=== PATIENT | female | born 1965 | race Caucasian/White ===

== ENCOUNTER → 2017-11-05 08:13 | Outpatient (CLI) | payer OTHER, SELFPAY ==
[2017-11-05 09:04] LABS: Alanine Aminotransferase 19 U/L (12-78); Albumin Level 3.7 gm/dL (3.4-5.0); Albumin/Globulin Ratio 0.9 (1.1-1.8); Alkaline Phosphatase 53 U/L (46-116); Anion Gap 12.9 mEq/L (5-15); Aspartate Amino Transferase 15 U/L (15-37); Bilirubin,Total 0.5 mg/dL (0.2-1.0); Blood Urea Nitrogen 14 mg/dL (7-18); Carbon Dioxide 27 mmol/L (21.0-32.0); Chloride 100 mmol/L (98-107); Chol/HDL Ratio 4.2 (1-3.5); Cholesterol 233 mg/dL (140-200); Creatinine,Serum 0.48 mg/dL (0.55-1.02); Estimated Glomerular Filt Rate 137 ml/min (>60); GFR (African American) 166 ML/MIN (>60); Globulin 4.3 gm/dl (1.3-3.2); Glucose 123 mg/dL (74-106); HDL Cholesterol 56 mg/dL (29-89); LDL Cholesterol 105 mg/dL (0-130); Potassium 3.9 mmoL/L (3.5-5.1); Sodium 136 mmol/L (136-145); Thyroid Stimulating Hormone 1.45 uIU/ml (0.358-3.740); Triglycerides 358 mg/dL (30-200); VLDL Cholesterol 72 mg/dL (0-40)
[2017-11-05 09:57] LABS: Hemoglobin A1C 5.5 % (0.0-7.0)
== END ==
PROVIDERS: Visit Provider Internal Medicine Adolescent Medicine
DX: E78.5 Hyperlipidemia, unspecified (principal); E11.9 Type 2 diabetes mellitus without complications; E03.9 Hypothyroidism, unspecified
CPT/HCPCS: 36415; 80053; 80061; 83036; 84443

== ENCOUNTER → 2018-02-28 09:39 | Outpatient (REF) | payer OTHER, SELFPAY | LOC: LAB 09:39 | PROVIDERS: Visit Provider Internal Medicine Adolescent Medicine | DX: R39.15 Urgency of urination (principal) | CPT/HCPCS: 87086 ==

== ENCOUNTER → 2018-04-13 07:11 | Outpatient (CLI) | payer OTHER, SELFPAY ==
[2018-04-13 07:57] LABS: Hemoglobin A1C 6.3 % (0.0-7.0)
[2018-04-13 08:23] LABS: Alanine Aminotransferase 16 U/L (12-78); Albumin Level 3.6 gm/dL (3.4-5.0); Albumin/Globulin Ratio 1.1 (1.1-1.8); Alkaline Phosphatase 48 U/L (46-116); Anion Gap 10.1 mEq/L (5-15); Aspartate Amino Transferase 11 U/L (15-37); Bilirubin,Total 0.3 mg/dL (0.2-1.0); Blood Urea Nitrogen 12 mg/dL (7-18); Calcium 8.7 mg/dL (8.5-10.1); Carbon Dioxide 30 mmol/L (21.0-32.0); Chloride 107 mmol/L (98-107); Chol/HDL Ratio 3.2 (1-3.5); Cholesterol 165 mg/dL (140-200); Creatinine,Serum 0.67 mg/dL (0.55-1.02); Estimated Glomerular Filt Rate 93 ml/min (>60); GFR (African American) 113 ML/MIN (>60); Globulin 3.3 gm/dl (1.3-3.2); Glucose 130 mg/dL (74-106); HDL Cholesterol 51 mg/dL (29-89); LDL Cholesterol 88 mg/dL (0-130); Potassium 4.1 mmoL/L (3.5-5.1); Sodium 143 mmol/L (136-145); Thyroid Stimulating Hormone 1.46 uIU/ml (0.358-3.740); Total Protein,Serum 6.9 gm/dL (6.4-8.2); Triglycerides 129 mg/dL (30-200); VLDL Cholesterol 26 mg/dL (0-40)
== END ==
PROVIDERS: PCP Internal Medicine Adolescent Medicine; Visit Provider Internal Medicine Adolescent Medicine
DX: E11.9 Type 2 diabetes mellitus without complications (principal); E78.5 Hyperlipidemia, unspecified; E03.9 Hypothyroidism, unspecified
CPT/HCPCS: 36415; 80053; 80061; 83036; 84443

== ENCOUNTER → 2018-08-19 09:28 | Outpatient (CLI) | payer OTHER, SELFPAY ==
[2018-08-19 10:05] LABS: Alanine Aminotransferase 17 U/L (12-78); Albumin Level 3.8 gm/dL (3.4-5.0); Albumin/Globulin Ratio 0.9 (1.1-1.8); Alkaline Phosphatase 56 U/L (46-116); Aspartate Amino Transferase 13 U/L (15-37); Bilirubin,Total 0.4 mg/dL (0.2-1.0); Blood Urea Nitrogen 12 mg/dL (7-18); Calcium 9.1 mg/dL (8.5-10.1); Carbon Dioxide 29 mmol/L (21.0-32.0); Chloride 101 mmol/L (98-107); Chol/HDL Ratio 3.1 (1-3.5); Cholesterol 181 mg/dL (140-200); Creatinine,Serum 0.62 mg/dL (0.55-1.02); Estimated Glomerular Filt Rate 102 ml/min (>60); GFR (African American) 123 ML/MIN (>60); Globulin 4.3 gm/dl (1.3-3.2); Glucose 125 mg/dL (74-106); HDL Cholesterol 58 mg/dL (29-89); LDL Cholesterol 104 mg/dL (0-130); Sodium 139 mmol/L (136-145); Thyroid Stimulating Hormone 1.95 uIU/ml (0.358-3.740); Total Protein,Serum 8.1 gm/dL (6.4-8.2); Triglycerides 93 mg/dL (30-200); VLDL Cholesterol 19 mg/dL (0-40)
[2018-08-19 15:24] LABS: Hemoglobin A1C 6.3 % (0.0-7.0)
== END ==
PROVIDERS: Visit Provider Internal Medicine Adolescent Medicine
DX: E11.9 Type 2 diabetes mellitus without complications (principal); E78.5 Hyperlipidemia, unspecified; E03.9 Hypothyroidism, unspecified
CPT/HCPCS: 36415; 80053; 80061; 83036; 84443

== ENCOUNTER → 2018-08-26 07:37 | Outpatient (CLI) | payer OTHER, SELFPAY ==
--- NOTE | 2018-08-26 07:52 | MR_ITS ---
MR lumbar spine wo con, MR 3-d myelogram/MRCP Ordering Physician: Ben Harris MD Patient Age: 52 years: Female HISTORY: ITS low back pain with left buttock and leg pain. Buttock and leg numbness, tingling. Left groin pain as well. : LEFT SIDE SCIATICA TECHNIQUE: Sagittal STIR, T1, T2, axial T1 and T2. On 1.5T Siemens wide bore MRI. 3-D MR myelogram image set obtained & performed on MRI workstation. Additional sagittal thin section T2 weighted dataset obtained from this latter acquisition as well (---76 CPT) COMPARISON :Plain films of the lumbar spine 12-21-03 04 FINDINGS The vertebral bodies are intact and the lumbar spine. No compression fractures. No osseous lesions. There is similar stable appearance when compared back to lumbar plain films from 2015. Mild anterior marginal osteophyte formation L-spine which become most evident at thoracolumbar junction region . Uppermost sacrum included & appears satisfactory. L5/S1. Disc well hydrated intact with only scant disc bulge. Moderate facet hypertrophy, arthropathy most evident at this level L4/5. Disc well hydrated intact with only scant disc bulge most evident central. [id number] facet and ligament flavum hypertrophy. L3/4 only scant slight loss of disc hydration & scant disc narrowing. Mild foraminal disc bulge. L2/3. Disc intact with only Slight loss of disc hydration is scant disc space narrowing.. No disc bulge or protrusion.. L1/2. Again only scant Subtle loss of disc height & hydration no disc protrusion. T12/L1 Again only scant Subtle loss of disc height & hydration no disc protrusion Neural foramen widely patent through these levels at mid and upper L-spine. . T11/ 12.: More pronounced degenerative disc space narrowing seen at T11/12,. Diffuse posterior ridging and spondylosis with a small central disc bulge/protrusion. These features do abut and efface the the thecal sac lower midline and just to the right of midline at lower thoracic cord. Axial image 9 sagittal 8 and 9. T10-11 there is a asymmetric bulge/small disc protrusion to the right would suggest abuts and flattens anterior right aspect of thoracic cord lower. Axial slice 3 3-D MR myelogram. The indentation upon the anterior thecal sac at T11/T12 most evident . Otherwise the lumbar spine with no significant epidural impression. There is only slight accentuated tapering thecal sac at L5/S1 level in part due to the facet hypertrophy No significant renal pathology. No evident retroperitoneal adenopathy. No aneurysm. --------IMPRESSION: 1. Most notable features are seen at lower thoracic spine(rather than lumbar spine) : ... T 11/T12: posterior ridging with mixed disc protrusion at midline-which does abut & slightly efface thoracic cord midline & just to the right of midline. ... T10/11:. Minimal disc protrusion to the right which slightly effaces thoracic cord right paracentral... 2. Only minimal degenerative changes lumbar spine No significant disc protrusion nor/herniation lumbar spine. No spinal stenosis lumbar spine Only minor disc bulging at the lower 3 levels. & hypertrophic facet changes most evident L5/S1 followed by L4/5..
== END ==
PROVIDERS: PCP Internal Medicine Adolescent Medicine; Visit Provider Internal Medicine Adolescent Medicine
DX: M54.32 Sciatica, left side (principal)
CPT/HCPCS: 72148; 76376

== ENCOUNTER → 2018-09-05 08:44 | Outpatient (POV) | payer OTHER, SELFPAY ==
[2018-09-05 09:04] VITALS: BP 131/87; PULSE 87; RESP 18; O2SAT 99
--- NOTE | 2018-09-05 10:16 | HMH.PMCON ---
Assessment and Plan (1) Muscle strain Current visit: Yes Status: Chronic Category: Medical Code(s): T14.8XXA - Other injury of unspecified body region, initial encounter (2) Myofascial pain Current visit: Yes Status: Chronic Category: Medical Code(s): M79.18 - Myalgia, other site (3) Left leg pain Current visit: Yes Status: Chronic Category: Medical Code(s): M79.605 - Pain in left leg - Assessment and plan all Dx Assessment and Plan for all problems:: We will send the patient for physical therapy we will also add Zanaflex 2 mg at nighttime as needed. Patient is going to continue with her diclofenac. We will follow-up after her physical therapy. Dr. Redmond has reviewed this note and agrees with this plan of care. This note was dictated using voice recognition software and may contain errors or omissions HPI - Data of Consult Consult date: 09/05/18 Requesting Physician: Magi Yeung APRN Primary Care Provider: Ben Harris MD - Consult Narrative Reason for consult: Left leg pain History of present illness: Ms. James is a 52 year old female who presents today for consultation in regards to her left buttock and left leg pain. Patient states work increases her pain while rest and diclofenac decrease her pain. Patient rates her pain a 5 out of 10. She states she does pretty well when she is not working long hours. Patient did have a steroid injection however she stated she had a reaction in regards to her sugar. Patient has not been in physical therapy yet. CC: Magi Yeung APRN [facility] History I have reviewed the patient's past medical history: Yes Medical History: Reports:: Diabetes Mellitus Type 2, Gastroesophageal Reflux Disease(GERD), Hyperlipidemia, Hypertension Denies:: Diabetes Mellitus Type 1, Internal Pacemaker, Lung Disease, Seizures Other Medical History: Reports: Glaucoma Other Surgeries: Yes: Cholecystectomy, Hysterectomy-Total. No: Pacemaker Amputation: No Fractures: No - *Social History Smoking Status: Never smoker Alcohol Intake: never Substance Use Type: denies use Occupational Status: other Housing: house Travel in the last 8 weeks: None - Psychiatric History Expresses thoughts of harming self/others: None Suicide Plan Description: No Plan *Family Hx:: No significant family history Review of Systems - Review of Systems ROS General: no recent weight change, no fever, no sleep disturbances Respiratory: no cough, no shortness of air, no recurring pulmonary infections Cardiovascular/Peripheral Vascular: No chest pain, No palpitations, no edema, no shortness of breath. Gastrointestinal: no incontinence, normal bowel movements reported Genitourinary: no incontinence Musculoskeletal: Left leg pain Psychiatric: normal mood/ affect Neurological: [denies weakness in extremities], [denies balance issues] Meds Home Medications Medication Instructions Recorded Confirmed Type brimonidine-timolol 0.2 %-0.5 % 1 drop OPHTHALMIC BID 30 Days #10 01/19/18 05/13/18 History eye drops fenofibrate 150 mg capsule 150 mg PO DAILY 90 Days #90 01/19/18 05/13/18 History lansoprazole 30 mg capsule,delayed 30 mg PO DAILY 90 Days #90 01/19/18 05/13/18 History release levothyroxine 50 mcg tablet 50 mcg PO DAILY 90 Days #90 01/19/18 05/13/18 History metformin 500 mg tablet 500 mg PO DAILY 90 Days #90 01/19/18 05/13/18 History pitavastatin calcium 4 mg tablet 4 mg PO DAILY 90 Days #90 01/19/18 05/13/18 History ramipril 5 mg capsule 5 mg PO BID 90 Days #180 01/19/18 05/13/18 History Estrogens, Conjugated [Premarin] 1.25 mg PO QDAY 05/13/18 05/13/18 History Allergies Allergy/AdvReac Type Severity Reaction Status Date / Time acetaminophen Allergy Verified 05/13/18 14:33 [From Coricidin] bacitracin Allergy Verified 05/13/18 14:33 [From Neosporin ([id number])] chlorpheniramine Allergy Verified 05/13/18 14:33 [From Coricidin]
--- NOTE | 2018-09-05 10:20 | P.CONS_ITS ---
Assessment and Plan (1) Muscle strain Current visit: Yes Status: Chronic Category: Medical Code(s): T14.8XXA - Other injury of unspecified body region, initial encounter (2) Myofascial pain Current visit: Yes Status: Chronic Category: Medical Code(s): M79.18 - Myalgia, other site (3) Left leg pain Current visit: Yes Status: Chronic Category: Medical Code(s): M79.605 - Pain in left leg - Assessment and plan all Dx Assessment and Plan for all problems:: We will send the patient for physical therapy we will also add Zanaflex 2 mg at nighttime as needed. Patient is going to continue with her diclofenac. We will follow-up after her physical therapy. Dr. Redmond has reviewed this note and agrees with this plan of care. This note was dictated using voice recognition software and may contain errors or omissions HPI - Data of Consult Consult date: 09/05/18 Requesting Physician: Magi Yeung APRN Primary Care Provider: Ben Harris MD - Consult Narrative Reason for consult: Left leg pain History of present illness: Ms. James is a 52 year old female who presents today for consultation in regards to her left buttock and left leg pain. Patient states work increases her pain while rest and diclofenac decrease her pain. Patient rates her pain a 5 out of 10. She states she does pretty well when she is not working long hours. Patient did have a steroid injection however she stated she had a reaction in regards to her sugar. Patient has not been in physical therapy yet. CC: Magi Yeung APRN [facility] History I have reviewed the patient's past medical history: Yes Medical History: Reports:: Diabetes Mellitus Type 2, Gastroesophageal Reflux Disease(GERD), Hyperlipidemia, Hypertension Denies:: Diabetes Mellitus Type 1, Internal Pacemaker, Lung Disease, Seizures Other Medical History: Reports: Glaucoma Other Surgeries: Yes: Cholecystectomy, Hysterectomy-Total. No: Pacemaker Amputation: No Fractures: No - *Social History Smoking Status: Never smoker Alcohol Intake: never Substance Use Type: denies use Occupational Status: other Housing: house Travel in the last 8 weeks: None - Psychiatric History Expresses thoughts of harming self/others: None Suicide Plan Description: No Plan *Family Hx:: No significant family history Review of Systems - Review of Systems ROS General: no recent weight change, no fever, no sleep disturbances Respiratory: no cough, no shortness of air, no recurring pulmonary infections Cardiovascular/Peripheral Vascular: No chest pain, No palpitations, no edema, no shortness of breath. Gastrointestinal: no incontinence, normal bowel movements reported Genitourinary: no incontinence Musculoskeletal: Left leg pain Psychiatric: normal mood/ affect Neurological: [denies weakness in extremities], [denies balance issues] Meds Home Medications Medication Instructions Recorded Confirmed Type brimonidine-timolol 0.2 %-0.5 % 1 drop OPHTHALMIC BID 30 Days #01/19/18 05/13/18 History eye drops fenofibrate 150 mg capsule 150 mg PO DAILY 90 Days #01/19/18 05/13/18 History lansoprazole 30 mg capsule,delayed 30 mg PO DAILY 90 Days #01/19/18 05/13/18 History release levothyroxine 50 mcg tablet 50 mcg PO DAILY 90 Days #01/19/18 05/13/18 History metformin 500 mg tablet 500 mg PO DAILY 90 Days #01/19/18 05/13/18 History pitavastatin
== END ==
PROVIDERS: PCP Internal Medicine Adolescent Medicine; Visit Provider Clinical Nurse Specialist Family Health
DX: T14.8XXA Other injury of unspecified body region, initial encounter (principal); M79.18 Myalgia, other site; M79.605 Pain in left leg
CPT/HCPCS: 99202

== ENCOUNTER 2018-10-24 08:00 | Outpatient (RCR) | payer OTHER, SELFPAY ==
--- NOTE | 2018-09-14 10:24 | HMH.PTOPEV ---
PT Outpatient Evaluation Rehab PT Outpatient Evaluation Start: 09/14/18 08:59 Freq: Status: Active Protocol: Document 09/14/18 09:52 KATIUSKA (Rec: 09/14/18 10:24 PHORBRADY [id number]) Electronically Signed By Nikhil Martinez, PT 09/14/18 09:52 Outpatient Therapy Subjective History Subjective History Pt is a 52 yowf with complaints of pain and numbness in the left hip which shoots down the leg to the feet that began 1 year ago. Pt reports tearing her L HS 2 years ago. Pt reports seeing doctor a couple weeks ago and having an MRI of her lumbar and thoracic spine which shows mild DDD in lower thoracic spine. Pt reports doctor states pain is due to left sciatic nerve. Pt reports pain is 2/10, at best 0/10, and at worst 6/10. Pt describes pain as ache, tightness, and numbness. Pt states pain is increased with activity and decreased with rest and heat. Pt has diabetes and hypertension and denies other comorbidities. Pt reports having lasik surgery, hysterectomy, and gallbladder removal. Chief Complaint Pain Stiff Symptom Type Ache Numbness Shooting Symptoms Relieved By Rest/Positioning Heat Symptoms Aggravated By Sitting Standing Bending/Stooping Physical Activity Twisting Walking Lifting Prior Functional Limitations None Current Functional Limitations Lifting Sleeping Standing Sitting Squatting Walking Stairs Symptom Description Intermittent Level of pain today (0-10) 2 Pain scale - at its best (0-10) 0 Pain scale - at its worst (0-10) 6 Lumbopelvi
== END 2018-10-24 08:05 | disposition home or self-care (01) ==
LOC: PT 08:00
PROVIDERS: Visit Provider Clinical Nurse Specialist Family Health
DX: M54.5 Low back pain (principal); M79.604 Pain in right leg; M79.605 Pain in left leg
CPT/HCPCS: 97010; 97014; 97033; 97110; 97163; G0283

== ENCOUNTER → 2019-01-05 07:47 | Outpatient (CLI) | payer OTHER, SELFPAY ==
[2019-01-05 10:22] LABS: Hemoglobin A1C 6.3 % (0.0-7.0)
[2019-01-05 10:50] LABS: Free Thyroxine Index 3.9 ug/dL (5.93-13.13); T4 (Thyroxine) 12.5 ug/dl (4.7-13.3); Triiodothryronine (T3) Uptake 31 % (31-39)
== END ==
PROVIDERS: Visit Provider Internal Medicine Adolescent Medicine
DX: E78.5 Hyperlipidemia, unspecified (principal); E03.9 Hypothyroidism, unspecified; E11.9 Type 2 diabetes mellitus without complications
CPT/HCPCS: 36415; 83036; 84436; 84443; 84479

== ENCOUNTER → 2019-05-15 07:19 | Outpatient (CLI) | payer OTHER, SELFPAY ==
[2019-05-15 09:25] LABS: Alanine Aminotransferase 10 U/L (12-78); Albumin Level 3.9 gm/dL (3.4-5.0); Albumin/Globulin Ratio 1.1 (1.1-1.8); Alkaline Phosphatase 39 U/L (46-116); Aspartate Amino Transferase 17 U/L (15-37); Bilirubin,Total 0.4 mg/dL (0.2-1.0); Blood Urea Nitrogen 14 mg/dL (7-18); Calcium 9.2 mg/dL (8.5-10.1); Carbon Dioxide 29 mmol/L (21.0-32.0); Chloride 100 mmol/L (98-107); Chol/HDL Ratio 3.8 (1-3.5); Cholesterol 204 mg/dL (140-200); Creatinine,Serum 0.59 mg/dL (0.55-1.02); Estimated Glomerular Filt Rate 107 ml/min (>60); GFR (African American) 130 ML/MIN (>60); Globulin 3.5 gm/dl (1.3-3.2); Glucose 123 mg/dL (74-106); HDL Cholesterol 54 mg/dL (29-89); LDL Cholesterol 111 mg/dL (0-130); Sodium 139 mmol/L (136-145); Thyroid Stimulating Hormone 1.16 uIU/ml (0.358-3.740); Total Protein,Serum 7.4 gm/dL (6.4-8.2); Triglycerides 197 mg/dL (30-200); VLDL Cholesterol 39 mg/dL (0-40)
[2019-05-15 11:10] LABS: Hemoglobin A1C 6.4 % (0.0-7.0)
== END ==
PROVIDERS: Visit Provider Internal Medicine Adolescent Medicine
DX: E78.5 Hyperlipidemia, unspecified (principal); E11.9 Type 2 diabetes mellitus without complications; E03.9 Hypothyroidism, unspecified; Z79.84 Long term (current) use of oral hypoglycemic drugs
CPT/HCPCS: 36415; 80053; 80061; 83036; 84443

== ENCOUNTER → 2019-09-26 13:13 | Outpatient (CLI) | payer OTHER, SELFPAY ==
[2019-09-26 13:27] LABS: Basophils % 0.6 % (0.1-2.0); Eosinophils # 0.3 K/mm3 (0.0-0.4); Hematocrit 36.4 % (37.0-47.0); Hemoglobin 12.7 g/dL (12.2-16.2); Lymphocytes # 0.5 K/mm3 (0.7-4.5); Lymphocytes % 13.2 % (10-50); Mean Corpuscular Volume 77.2 fl (81-99); Mean Platelet Volume 7.6 fl (7.4-10.4); Monocytes # 0.1 K/mm3 (0.1-1.0); Monocytes % 3.2 % (1.7-9.3); Platelet Count 205 K/mm3 (142-424); Red Blood Count 4.71 M/mm3 (4.20-5.40); Red Cell Distribution Width 15.7 % (11.5-17.5)
[2019-09-26 14:16] LABS: Chloride 91 mmol/L (98-107); Potassium 3.4 mmoL/L (3.5-5.1); Sodium 130 mmol/L (136-145)
[2019-09-26 14:19] LABS: Alanine Aminotransferase 14 U/L (12-78); Albumin Level 4.6 g/dl (3.5-5.0); Albumin/Globulin Ratio 1.3 (1.1-1.8); Alkaline Phosphatase 57 U/L (38-126); Anion Gap 15.4 mEq/L (5-15); Aspartate Amino Transferase 47 U/L (14-36); Bilirubin,Total 0.7 mg/dl (0.2-1.3); Blood Urea Nitrogen 10 mg/dl (7-17); Calcium 9.2 mg/dl (8.4-10.2); Carbon Dioxide 27 mmol/L (22.0-30.0); Estimated Glomerular Filt Rate 105 ml/min (>60); GFR (African American) 128 ML/MIN (>60); Globulin 3.5 g/dL (1.3-3.2); Glucose 145 mg/dl (74-100); Total Protein,Serum 8.1 g/dl (6.3-8.2)
[2019-09-26 19:21] LABS: Adenovirus F 40/41, stool Not Detected (NotDetected); Astrovirus Not Detected (NotDetected); Campylobacter Not Detected (NotDetected); Clostridium Difficile A/B, PCR Not Detected (NotDetected); Cryptosporidium Not Detected (NotDetected); Cyclospora Cayetanesis Not Detected (NotDetected); Entamoeba histolytica Not Detected (NotDetected); Enteroaggregative E coli Not Detected (NotDetected); Enteropathogenic E coli Not Detected (NotDetected); Enterotoxigenic E coli Not Detected (NotDetected); Giardia lamblia Not Detected (NotDetected); Norovirus Not Detected (NotDetected); Plesimonas Shigalloides, PCR Not Detected (NotDetected); Rotavirus A Not Detected (NotDetected); Salmonella, PCR Not Detected (NotDetected); Sapovirus Not Detected (NotDetected); Shiga-like toxin E coli Not Detected (NotDetected); Shigella Enterovasive E coli Not Detected (NotDetected); Vibrio Cholerae Not Detected (NotDetected); Vibrio, PCR Not Detected (NotDetected); Yersinia Entercolitica, PCR Not Detected (NotDetected)
== END ==
PROVIDERS: Visit Provider Nurse Practitioner Family
DX: K52.9 Noninfective gastroenteritis and colitis, unspecified (principal); R53.1 Weakness
CPT/HCPCS: 36415; 80053; 85025; 87507

== ENCOUNTER 2019-09-27 08:05 | Outpatient (CLI) | payer OTHER, SELFPAY ==
[2019-09-27 08:27] LABS: Basophils % 0.6 % (0.1-2.0); Eosinophils # 0.3 K/mm3 (0.0-0.4); Eosinophils % 6.5 % (0.1-12.0); Hemoglobin 12.4 g/dL (12.2-16.2); Lymphocytes % 21.5 % (10-50); Mean Corpuscular HGB Conc 33.5 g/dL (31.8-35.4); Mean Corpuscular Hemoglobin 26.1 pg (27.0-31.2); Mean Corpuscular Volume 78.1 fl (81-99); Mean Platelet Volume 8.2 fl (7.4-10.4); Monocytes # 0.2 K/mm3 (0.1-1.0); Monocytes % 3.9 % (1.7-9.3); Neutrophils # 3.3 K/mm3 (1.8-7.8); Neutrophils % 67.4 % (37.0-80.0); Platelet Count 198 K/mm3 (142-424); Red Blood Count 4.74 M/mm3 (4.20-5.40); Red Cell Distribution Width 15.8 % (11.5-17.5); White Blood Count 4.8 K/mm3 (4.8-10.8)
[2019-09-27 09:30] VITALS: BP 94/60; PULSE 87; RESP 18; TEMP 36.7; O2SAT 97
[2019-09-27 10:30] VITALS: BP 108/52; PULSE 80; RESP 18; O2SAT 99
[2019-09-27 11:22] LABS: Chloride 92 mmol/L (98-107); Potassium 3.4 mmoL/L (3.5-5.1); Sodium 130 mmol/L (136-145)
[2019-09-27 11:25] LABS: Alanine Aminotransferase 13 U/L (12-78); Albumin Level 4.4 g/dl (3.5-5.0); Albumin/Globulin Ratio 1.6 (1.1-1.8); Alkaline Phosphatase 59 U/L (38-126); Anion Gap 13.4 mEq/L (5-15); Aspartate Amino Transferase 44 U/L (14-36); Bilirubin,Total 0.6 mg/dl (0.2-1.3); Blood Urea Nitrogen 11 mg/dl (7-17); Calcium 9.1 mg/dl (8.4-10.2); Carbon Dioxide 28 mmol/L (22.0-30.0); Estimated Glomerular Filt Rate 105 ml/min (>60); GFR (African American) 128 ML/MIN (>60); Globulin 2.8 g/dL (1.3-3.2); Glucose 144 mg/dl (74-100); Total Protein,Serum 7.2 g/dl (6.3-8.2)
[2019-09-27 11:40] VITALS: BP 97/59; PULSE 84; RESP 18; O2SAT 98
== END 2019-09-27 11:40 | disposition home or self-care (01) ==
LOC: LAB 08:05 → INF 09:07
PROVIDERS: PCP Internal Medicine Adolescent Medicine; Visit Provider Internal Medicine Adolescent Medicine
DX: E87.1 Hypo-osmolality and hyponatremia (principal); E86.0 Dehydration
CPT/HCPCS: 36415; 80053; 85025; 96360; 96361

== ENCOUNTER → 2019-10-03 07:29 | Outpatient (CLI) | payer OTHER, SELFPAY ==
[2019-10-03 07:45] LABS: Basophils % 0.7 % (0.1-2.0); Eosinophils # 0.1 K/mm3 (0.0-0.4); Eosinophils % 1.8 % (0.1-12.0); Hematocrit 32.3 % (37.0-47.0); Hemoglobin 10.3 g/dL (12.2-16.2); Lymphocytes # 2.1 K/mm3 (0.7-4.5); Lymphocytes % 38.9 % (10-50); Mean Corpuscular HGB Conc 31.8 g/dL (31.8-35.4); Mean Corpuscular Hemoglobin 26.2 pg (27.0-31.2); Mean Corpuscular Volume 82.4 fl (81-99); Mean Platelet Volume 7.4 fl (7.4-10.4); Monocytes # 0.3 K/mm3 (0.1-1.0); Monocytes % 5.8 % (1.7-9.3); Neutrophils # 2.8 K/mm3 (1.8-7.8); Neutrophils % 52.8 % (37.0-80.0); Platelet Count 335 K/mm3 (142-424); Red Blood Count 3.92 M/mm3 (4.20-5.40); Red Cell Distribution Width 16.5 % (11.5-17.5); White Blood Count 5.3 K/mm3 (4.8-10.8)
[2019-10-03 08:39] LABS: Alanine Aminotransferase 38 U/L (12-78); Albumin Level 4.2 g/dl (3.5-5.0); Albumin/Globulin Ratio 1.6 (1.1-1.8); Alkaline Phosphatase 47 U/L (38-126); Anion Gap 11.2 mEq/L (5-15); Aspartate Amino Transferase 52 U/L (14-36); Bilirubin,Total 0.4 mg/dl (0.2-1.3); Blood Urea Nitrogen 16 mg/dl (7-17); Calcium 9.1 mg/dl (8.4-10.2); Carbon Dioxide 31 mmol/L (22.0-30.0); Chloride 100 mmol/L (98-107); Estimated Glomerular Filt Rate 130 ml/min (>60); GFR (African American) 157 ML/MIN (>60); Globulin 2.7 g/dL (1.3-3.2); Glucose 119 mg/dl (74-100); Potassium 4.2 mmoL/L (3.5-5.1); Sodium 138 mmol/L (136-145); Total Protein,Serum 6.9 g/dl (6.3-8.2)
[2019-10-03 09:09] LABS: Thyroid Stimulating Hormone 1.84 uIU/mL (0.465-4.68)
[2019-10-03 13:49] LABS: Hemoglobin A1C 6.5 % (4.0-6.0)
== END ==
PROVIDERS: Visit Provider Internal Medicine Adolescent Medicine
DX: E03.9 Hypothyroidism, unspecified (principal); E11.9 Type 2 diabetes mellitus without complications; Z79.84 Long term (current) use of oral hypoglycemic drugs
CPT/HCPCS: 80053; 83036; 84443; 85025

== ENCOUNTER → 2019-12-29 07:07 | Outpatient (CLI) | payer OTHER, SELFPAY ==
[2019-12-29 08:33] LABS: Basophils # 0.1 K/mm3 (0-0.2); Basophils % 0.8 % (0.1-2.0); Eosinophils # 0.1 K/mm3 (0.0-0.4); Eosinophils % 1.9 % (0.1-12.0); Hematocrit 36.9 % (37.0-47.0); Hemoglobin 12.6 g/dL (12.2-16.2); Lymphocytes # 2.7 K/mm3 (0.7-4.5); Lymphocytes % 37.4 % (10-50); Mean Corpuscular HGB Conc 34.3 g/dL (31.8-35.4); Mean Corpuscular Hemoglobin 27.4 pg (27.0-31.2); Mean Corpuscular Volume 79.9 fl (81-99); Mean Platelet Volume 7.6 fl (7.4-10.4); Monocytes # 0.2 K/mm3 (0.1-1.0); Platelet Count 257 K/mm3 (142-424); Red Blood Count 4.61 M/mm3 (4.20-5.40); Red Cell Distribution Width 16.1 % (11.5-17.5); White Blood Count 7.1 K/mm3 (4.8-10.8)
[2019-12-29 08:48] LABS: Hemoglobin A1C 6.2 % (4.0-6.0)
[2019-12-29 09:22] LABS: Chloride 101 mmol/L (98-107); Potassium 4.1 mmoL/L (3.5-5.1); Sodium 137 mmol/L (136-145)
[2019-12-29 09:24] LABS: Alanine Aminotransferase 15 U/L (12-78); Aspartate Amino Transferase 29 U/L (14-36); Blood Urea Nitrogen 10 mg/dl (7-17); Estimated Glomerular Filt Rate 130 ml/min (>60); GFR (African American) 157 ML/MIN (>60)
[2019-12-29 09:25] LABS: Albumin Level 4.4 g/dl (3.5-5.0); Albumin/Globulin Ratio 1.4 (1.1-1.8); Alkaline Phosphatase 57 U/L (38-126); Anion Gap 12.1 mEq/L (5-15); Bilirubin,Total 0.6 mg/dl (0.2-1.3); Calcium 9.3 mg/dl (8.4-10.2); Carbon Dioxide 28 mmol/L (22.0-30.0); Cholesterol 167 mg/dl (140-200); Globulin 3.2 g/dL (1.3-3.2); Glucose 139 mg/dl (74-100); HDL Cholesterol 55 mg/dl (40-60); Total Protein,Serum 7.6 g/dl (6.3-8.2); Triglycerides 237 mg/dl (30-150); VLDL Cholesterol 47 mg/dL (0-40)
[2019-12-29 09:36] LABS: Direct LDL Cholesterol 93.45 mg/dL (100-129)
== END ==
PROVIDERS: Visit Provider Internal Medicine Adolescent Medicine
DX: E78.5 Hyperlipidemia, unspecified (principal); E11.69 Type 2 diabetes mellitus with other specified complication; Z79.84 Long term (current) use of oral hypoglycemic drugs
CPT/HCPCS: 36415; 80053; 80061; 83036; 85025

== ENCOUNTER → 2020-09-09 06:54 | Outpatient (CLI) | payer OTHER, SELFPAY ==
[2020-09-09 07:32] LABS: Alanine Aminotransferase 20 U/L (12-78); Albumin Level 4.7 g/dl (3.5-5.0); Albumin/Globulin Ratio 1.3 (1.1-1.8); Alkaline Phosphatase 64 U/L (38-126); Aspartate Amino Transferase 52 U/L (14-36); Bilirubin,Total 0.4 mg/dl (0.2-1.3); Blood Urea Nitrogen 14 mg/dl (7-17); Calcium 9.7 mg/dl (8.4-10.2); Carbon Dioxide 29 mmol/L (22.0-30.0); Chloride 97 mmol/L (98-107); Chol/HDL Ratio 3.4 (1-3.5); Cholesterol 205 mg/dl (140-200); Estimated Glomerular Filt Rate 130 ml/min (>60); GFR (African American) 157 ML/MIN (>60); Globulin 3.5 g/dL (1.3-3.2); Glucose 167 mg/dl (74-100); HDL Cholesterol 61 mg/dl (40-60); Sodium 137 mmol/L (136-145); Total Protein,Serum 8.2 g/dl (6.3-8.2); Triglycerides 281 mg/dl (30-150); VLDL Cholesterol 56 mg/dL (0-40)
[2020-09-09 07:42] LABS: Direct LDL Cholesterol 85.83 mg/dL (100-129)
[2020-09-09 08:02] LABS: Thyroid Stimulating Hormone 2.35 uIU/mL (0.465-4.68)
[2020-09-09 08:55] LABS: Hemoglobin A1C 6.7 % (4.0-6.0)
== END ==
PROVIDERS: Visit Provider Internal Medicine Adolescent Medicine
DX: E11.9 Type 2 diabetes mellitus without complications (principal); E78.5 Hyperlipidemia, unspecified; E03.9 Hypothyroidism, unspecified; Z79.84 Long term (current) use of oral hypoglycemic drugs
CPT/HCPCS: 36415; 80053; 80061; 83036; 84443

== ENCOUNTER → 2020-12-10 20:07 | Outpatient (CLI) | payer OTHER, SELFPAY ==
[2020-12-10 20:15] VITALS: BMI 32.9
== END ==
PROVIDERS: PCP Internal Medicine Adolescent Medicine; Visit Provider Emergency Medicine
DX: N39.0 Urinary tract infection, site not specified (principal)

== ENCOUNTER → 2021-03-17 06:54 | Outpatient (CLI) | payer OTHER, SELFPAY ==
[2021-03-17 07:46] LABS: Hemoglobin A1C 6.6 % (4.0-6.0)
[2021-03-17 07:47] LABS: Chloride 96 mmol/L (98-107)
[2021-03-17 07:48] LABS: Potassium 4.3 mmoL/L (3.5-5.1); Sodium 137 mmol/L (136-145)
[2021-03-17 07:50] LABS: Blood Urea Nitrogen 14 mg/dl (7-17); Estimated Glomerular Filt Rate 129 ml/min (>60); GFR (African American) 156 ML/MIN (>60)
[2021-03-17 07:51] LABS: Alanine Aminotransferase 15 U/L (12-78); Albumin Level 4.5 g/dl (3.5-5.0); Albumin/Globulin Ratio 1.4 (1.1-1.8); Alkaline Phosphatase 68 U/L (38-126); Anion Gap 14.3 mEq/L (5-15); Aspartate Amino Transferase 41 U/L (14-36); Bilirubin,Total 0.5 mg/dl (0.2-1.3); Calcium 9.8 mg/dl (8.4-10.2); Carbon Dioxide 31 mmol/L (22.0-30.0); Chol/HDL Ratio 3.2 (1-3.5); Cholesterol 204 mg/dl (140-200); Globulin 3.2 g/dL (1.3-3.2); Glucose 149 mg/dl (74-100); HDL Cholesterol 63 mg/dl (40-60); Total Protein,Serum 7.7 g/dl (6.3-8.2)
[2021-03-17 07:52] LABS: Triglycerides 426 mg/dl (30-150)
[2021-03-17 08:02] LABS: Direct LDL Cholesterol 76.29 mg/dL (100-129)
[2021-03-17 08:22] LABS: Thyroid Stimulating Hormone 2.88 uIU/mL (0.465-4.68)
== END ==
PROVIDERS: Visit Provider Internal Medicine Adolescent Medicine
DX: E11.9 Type 2 diabetes mellitus without complications (principal); E78.5 Hyperlipidemia, unspecified; E03.9 Hypothyroidism, unspecified; Z79.84 Long term (current) use of oral hypoglycemic drugs
CPT/HCPCS: 36415; 80053; 80061; 83036; 84443

== ENCOUNTER → 2021-08-05 15:25 | Outpatient (CLI) | payer OTHER, SELFPAY ==
[2021-08-05 15:53] LABS: Basophils # 0.1 K/mm3 (0-0.2); Basophils % 1.5 % (0.1-2.0); Eosinophils # 0.7 K/mm3 (0.0-0.4); Eosinophils % 7.3 % (0.1-12.0); Hematocrit 36.2 % (37.0-47.0); Hemoglobin 12.2 g/dL (12.2-16.2); Lymphocytes # 2.2 K/mm3 (0.7-4.5); Lymphocytes % 24.2 % (10-50); Mean Corpuscular HGB Conc 33.7 g/dL (31.8-35.4); Mean Corpuscular Hemoglobin 26.9 pg (27.0-31.2); Mean Corpuscular Volume 79.7 fl (81-99); Mean Platelet Volume 8.1 fl (7.4-10.4); Monocytes # 0.3 K/mm3 (0.1-1.0); Monocytes % 3.6 % (1.7-9.3); Neutrophils # 5.7 K/mm3 (1.8-7.8); Neutrophils % 63.4 % (37.0-80.0); Platelet Count 281 K/mm3 (142-424); Red Blood Count 4.54 M/mm3 (4.20-5.40); White Blood Count 9.1 K/mm3 (4.8-10.8)
[2021-08-05 16:57] LABS: Alanine Aminotransferase 19 U/L (12-78); Albumin Level 4.4 g/dl (3.5-5.0); Albumin/Globulin Ratio 1.5 (1.1-1.8); Alkaline Phosphatase 58 U/L (38-126); Aspartate Amino Transferase 47 U/L (14-36); Bilirubin,Total 0.7 mg/dl (0.2-1.3); Blood Urea Nitrogen 13 mg/dl (7-17); Calcium 9.6 mg/dl (8.4-10.2); Carbon Dioxide 27 mmol/L (22.0-30.0); Chloride 97 mmol/L (98-107); Estimated Glomerular Filt Rate 129 ml/min (>60); GFR (African American) 156 ML/MIN (>60); Globulin 2.9 g/dL (1.3-3.2); Glucose 131 mg/dl (74-100); Magnesium 1.4 mg/dl (1.6-2.3); Sodium 134 mmol/L (136-145); Total Protein,Serum 7.3 g/dl (6.3-8.2)
[2021-08-05 17:24] LABS: Erythrocyte Sedimentation Rate 26 mm/hr (0-30)
== END ==
PROVIDERS: Visit Provider Internal Medicine Adolescent Medicine
DX: R51.9 Headache, unspecified (principal)
CPT/HCPCS: 36415; 80053; 83735; 85025; 85651

== ENCOUNTER → 2021-08-06 19:49 | Outpatient (CLI) | payer OTHER, SELFPAY | PROVIDERS: Visit Provider Nurse Practitioner Family | DX: Z20.822 Contact with and (suspected) exposure to COVID-19 (principal) | CPT/HCPCS: C9803; U0003; U0005 ==

== ENCOUNTER → 2021-08-08 15:26 | Outpatient (CLI) | payer OTHER, SELFPAY ==
--- NOTE | 2021-08-08 15:29 | MR_ITS ---
PROCEDURE INFORMATION: Exam: MR Head Without Contrast Exam date and time: 08/08/2021 3:29 PM Age: 55 years old Clinical indication: Headaches new onset severe. TECHNIQUE: Imaging protocol: MR of the head without contrast. COMPARISON: No relevant prior studies available. FINDINGS: Brain: There are occasional nonspecific foci of high signal abnormality in the bar radiata and centrum semiovale. These are best seen on the flair images. These foci may represent areas of gliosis, demyelination, and/or chronic ischemic change. Cerebral ventricles: Normal. No ventriculomegaly. Bones/joints: Unremarkable. Paranasal sinuses: Normal as visualized. No acute sinusitis. Mastoid air cells: Normal as visualized. No mastoid effusion. Orbital cavity: Unremarkable. Soft tissues: Unremarkable. IMPRESSION: There are occasional nonspecific foci of high signal abnormality in the bar radiata and centrum semiovale. These are best seen on the flair images. These foci may represent areas of gliosis, demyelination, and/or chronic ischemic change. No acute infarct is identified.
== END ==
PROVIDERS: PCP Internal Medicine Adolescent Medicine; Visit Provider Internal Medicine Adolescent Medicine
DX: R51.9 Headache, unspecified (principal)
CPT/HCPCS: 70551

== ENCOUNTER 2022-01-03 09:27 | Emergency (ER) | payer OTHER, SELFPAY ==
[2022-01-03 09:45] VITALS: BP 162/99; PULSE 105; RESP 18; TEMP 36.7; O2SAT 97; BMI 32.9
--- NOTE | 2022-01-03 10:17 | HMH.EDUTC ---
[facility] [place] Clinical Impression: Sinusitis Qualifiers: Sinusitis location: maxillary Chronicity: acute Recurrence: non-recurrent Qualified Code(s): J01.00 - Acute maxillary sinusitis, unspecified Disposition: Home, Self-Care Condition on Discharge: Good Instructions: DI for Sinusitis Additional Instructions: Take all medications as directed until gone Increase fluids Follow up if not improving Prescriptions: Amoxicillin [Amoxicillin 875MG Tab] 875 mg PO Q12H 10 Days #20 tab Transmission Status: Pending to [facility] predniSONE [Prednisone 20mg Tab] 20 mg PO BID 5 Days #10 tab Transmission Status: Pending to [facility] Referrals: Ben Harris MD [Primary Care Provider] - Time of Disposition: 10:26 Medical Decision Making - Mitch Inquiry Pt receiving controlled substance: No Vital Signs: 01/03/22 09:45 Temperature 98.1 F Temperature Source Oral Pulse Rate [Right Brachial] 105 H Respiratory Rate 18 Blood Pressure [Right Arm] 162/99 H Blood Pressure Mean [Right Arm] 120 Blood Pressure Source [Right Arm] Automatic Cuff Blood Pressure Position [Right Arm] Sitting 02 Sat by Pulse Oximetry 97 Oxygen Delivery Method Room Air [facility] [place] HPI - General Stated complaint: sore throat, cough, congestion Time Seen by Provider: 01/03/22 10:18 Mode of Arrival: Ambulatory Source of Information: Patient Limitations: No Limitations Description of Symptoms (Recalled from Triage Doc. by RN): PATIENT C/O SORE THROAT, CONGESTION, AND SINUS PRESSURE X 2 DAYS HEENT Symptoms (Recalled from RN notes): Yes Resp Symptoms (Recalled from RN notes): No Skin Symptoms (Recalled from RN notes): No MS Symptoms (Recalled from RN notes): No Functional Status (Recalled from RN notes): WNL - History of Present Illness Provider Complaint: Cough, congestion, sinus pressure, sore throat X 3 days. No fever. Took Mucinex, OTC meds - haven't seemed to help much. No rash. Cough productive. No vomiting or diarrhea. Onset (ago): day(s) (3) Location: face, chest Relieving factors: none Exacerbating factors: none Associated symptoms: cough Treatments prior to arrival: other (Mucinex) - Related Data Home Medications Medication Instructions Recorded Confirmed brimonidine 0.2 %-timolol 0.5 % 1 drp OPHTHALMIC BID 30 Days #10 06/13/18 02/02/22 eye drops fenofibrate 150 mg capsule 150 mg PO DAILY 90 Days #90 01/19/18 09/10/21 lansoprazole 30 mg capsule,delayed 30 mg PO DAILY 90 Days #90 01/19/18 09/10/21 release levothyroxine 50 mcg tablet 50 mcg PO DAILY 90 Days #90 01/19/18 09/10/21 metformin 500 mg tablet 500 mg PO DAILY 90 Days #90 01/19/18 09/10/21 pitavastatin calcium 4 mg tablet 4 mg PO DAILY 90 Days #90 01/19/18 09/10/21 ramipril 5 mg capsule 5 mg PO BID 90 Days #180 01/19/18 09/10/21 Ofloxacin [Ocuflox 0.3% OPHTH 1 drp EYE-RIGHT TID 09/27/19 09/10/21 drops 5mL] Previous Rx's Medication Instructions Recorded Ondansetron [Zofran 4mg ODT] 4 mg PO Q8HP PRN #20 tab.rapdis 09/24/19 conjugated estrogens 1.25 mg tablet 1.25 mg PO DAILY #90 tab 09/06/20 fluoxetine 40 mg capsule 40 mg PO DAILY #90 cap 09/10/21 estradiol 2 mg tablet See Rx Instructions .ROUTE 11/06/21 .COMPLEX #90 tab Amoxicillin [Amoxicillin 875MG 875 mg PO Q12H 10 Days #20 tab 01/03/22 Tab] predniSONE [Prednisone 20mg 20 mg PO BID 5 Days #10 tab 01/03/22 Tab] Allergies Allergy/AdvReac Type Severity Reaction Status Date / Time ezetimibe [From Zetia] Allergy Severe Cramping Verified 09/10/21 08:14 of the Muscles bacitracin Allergy Redness of Verified 09/10/21 08:14 [From Neosporin Skin ([id number])] chlorpheniramine Allergy HEART RACES Verified 09/10/21 08:14 [From Coricidin] neomycin Allergy Redness of Verified 09/10/21 08:14 [From Neosporin Skin ([id number])] phenylpropanolamine Allergy HEART RACES Verified 09/10/21 08:14 [From Coricidin] polymyxi
[2022-01-03 10:25] VITALS: BP 162/99; PULSE 105; RESP 18; TEMP 36.7; O2SAT 97
== END 2022-01-03 10:37 | disposition home or self-care (01) ==
PROVIDERS: Emergency Provider Physician Assistant; PCP Internal Medicine Adolescent Medicine
DX: J01.00 Acute maxillary sinusitis, unspecified (principal); J02.9 Acute pharyngitis, unspecified; E11.9 Type 2 diabetes mellitus without complications; K21.9 Gastro-esophageal reflux disease without esophagitis; I10 Essential (primary) hypertension
CPT/HCPCS: 99212; G0463

== ENCOUNTER 2022-04-29 05:00 | Emergency (ER) | payer OTHER, SELFPAY ==
[2022-04-29] VITALS (9 sets, daily range): BP systolic 0–125; BP diastolic 0–86; PULSE 0–135; RESP 0–20; TEMP -17.7–34.1; O2SAT 0–100; BMI 36.3
--- NOTE | 2022-04-29 04:35 | XR_ITS ---
PROCEDURE INFORMATION: Exam: XR Chest Exam date and time: 04/29/2022 4:50 AM Age: 56 years old Clinical indication: Device placement; Ett placement (vent status); Additional info: S/P intubation TECHNIQUE: Imaging protocol: Radiologic exam of the chest. Views: 1 view. COMPARISON: No relevant prior studies available. FINDINGS: Tubes, catheters and devices: Tip of ET tube lies 3.0 cm from the kwasi. Tip of NG tube lies below the GE junction, however tip is not included on the study. Lungs: Marked hypoventilatory changes of the lungs. Atelectasis right lung base. Pleural spaces: Unremarkable. No pleural effusion. No pneumothorax. Heart/Mediastinum: Unremarkable. No cardiomegaly. Diaphragm: There is nonspecific elevation of the right hemidiaphragm. Bones/joints: Degenerative changes of the spine. Acute mildly displaced fracture left anterior 7th rib. Soft tissues: Soft tissue gas throughout the lower neck. Gastrointestinal tract: Mild gaseous distention of bowel in the upper abdomen. IMPRESSION: 1. Acute mildly displaced fracture involving the left anterior 7th rib. 2. Hypoventilatory changes with right base atelectasis. 3. Support lines and tubes as above. 4. Soft tissue gas lower neck bilaterally.
--- NOTE | 2022-04-29 04:35 | ECG_ITS ---
APPROVED REPORT Exam: Resting ECG HR:108 bpm ECG Measurements Heart Rate 108 AXES [place] 164 P 28 QRSd 150 QRS -61 QT 384 T 76 QTc 447 Conclusion SINUS TACHYCARDIA LEFT AXIS DEVIATION [QRS AXIS < -30] INTRAVENTRICULAR CONDUCTION DELAY [130+ ms QRS DURATION] ST DEPRESSION, CONSIDER SUBENDOCARDIAL INJURY [0.1+ mV ST DEPRESSION] ABNORMAL ECG UNCONFIRMED REPORT Electronically signed by : Ben Harris MD 04/29/2022 17:42:32
[2022-04-29 04:41] LABS: Basophils # 0.2 K/mm3 (0-0.2); Basophils % 1.5 % (0.1-2.0); Eosinophils # 0.1 K/mm3 (0.0-0.4); Hematocrit 40.7 % (37.0-47.0); Hemoglobin 12.5 g/dL (12.2-16.2); Lymphocytes # 5.7 K/mm3 (0.7-4.5); Lymphocytes % 56.3 % (10-50); Mean Corpuscular HGB Conc 30.8 g/dL (31.8-35.4); Mean Corpuscular Hemoglobin 27.9 pg (27.0-31.2); Mean Corpuscular Volume 90.3 fl (81-99); Mean Platelet Volume 8.5 fl (7.4-10.4); Monocytes # 0.3 K/mm3 (0.1-1.0); Monocytes % 2.5 % (1.7-9.3); Neutrophils # 3.9 K/mm3 (1.8-7.8); Neutrophils % 38.6 % (37.0-80.0); Platelet Count 317 K/mm3 (142-424); Red Cell Distribution Width 16.1 % (11.5-17.5); White Blood Count 10.1 K/mm3 (4.8-10.8)
[2022-04-29 04:43] LABS: MANUAL DIFFERENTIAL MANUAL DIFFERENTIAL (MANUAL DIFF)
[2022-04-29 04:49] LABS: INR 1.04 (0.9-1.1); Prothrombin Time 11.2 seconds (10.1-12.5)
--- NOTE | 2022-04-29 04:49 | ECG_ITS ---
APPROVED REPORT Exam: Resting ECG HR:120 bpm ECG Measurements Heart Rate 120 AXES QRSd 163 QRS -87 QT 373 T 71 QTc 444 Conclusion ATRIAL FLUTTER/TACHYCARDIA WITH RAPID VENTRICULAR RESPONSE LEFT AXIS DEVIATION [QRS AXIS < -30] RIGHT BUNDLE BRANCH BLOCK [120+ ms QRS DURATION, UPRIGHT V1, 40+ ms S IN I/aVL/V4/V5/V6] ANTERIOR MYOCARDIAL INFARCTION , POSSIBLY ACUTE [40+ ms Q WAVE AND/OR ST/T ABNORMALITY IN V3/V4] MARKED ST ELEVATION, CONSIDER LATERAL INJURY [MARKED ST ELEVATION W/O NORMALLY INFLECTED T-WAVE IN I/aVL/V5/V6] ACUTE VA UNCONFIRMED REPORT Electronically signed by : Ben Harris MD 04/29/2022 17:42:26
[2022-04-29 04:52] LABS: Alanine Aminotransferase 37 U/L (12-78); Albumin Level 3.3 g/dl (3.5-5.0); Albumin/Globulin Ratio 1.4 (1.1-1.8); Alkaline Phosphatase 65 U/L (38-126); Amylase 129 U/L (30-110); Aspartate Amino Transferase 86 U/L (14-36); Blood Urea Nitrogen 17 mg/dl (7-17); Calcium 8.1 mg/dl (8.4-10.2); Carbon Dioxide 17 mmol/L (22.0-30.0); Chloride 101 mmol/L (98-107); Creatinine Clearance Estimated 118 mL/min (50-200); Estimated Glomerular Filt Rate 87 ml/min (>60); GFR (African American) 106 ML/MIN (>60); Globulin 2.4 g/dL (1.3-3.2); Lipase 302 U/L (23-300); Sodium 141 mmol/L (136-145); Total Protein,Serum 5.7 g/dl (6.3-8.2)
--- NOTE | 2022-04-29 04:57 | PC.NURSE ---
House notified to call in pie bakery laborer per shaunna at this time.
[2022-04-29 04:58] LABS: C-Reactive Protein 7.4 mg/L (0-4)
[2022-04-29 04:59] LABS: Bilirubin,Total < 0.1 mg/dl (0.2-1.3)
[2022-04-29 05:02] LABS: Glucose 421 mg/dl (74-100)
[2022-04-29 05:08] LABS: Procalcitonin 0.062 ng/mL (0.0-2.0)
[2022-04-29 05:20] LABS: Erythrocyte Sedimentation Rate 13 mm/hr (0-30)
[2022-04-29 05:37] LABS: Lymphocytes % 62 % (10-50); Neutrophils % 38 % (42-76); Total Cells Counted 100
[2022-04-29 05:39] LABS: Platelet Estimate Normal; RBC Morphology Normal
--- NOTE | 2022-04-29 06:09 | PC.NURSE ---
Addendum entered by Dee Mcgovern RN 04/29/22 07:05: 0431 Pulse check indicated a pulse. Sinus tach on monitor. CPR suspended. Original Note: Code Flow: 0339: Family called 911. Reports of patient found unresponsive, not breathing. 0346: [facility] responded to 911 call. Patient was unresponsive, not breathing, asystole. CPR initiated, LMA size 3 inserved, 20g IV placed in patients right AC, 1mg of epinepherine given via IV. 0400: Staff arrived to trauma room 3 in response to calls from ER staff. Staff included Viky Hendrickson. Sam Chatman, BETO Dong, Dee Mcgovern, , Cristin Moore, Obdulia (respiratory), Deedee (lab), Gil (respiratory), Eli Ponce 0410: Patient arrived to [facility] ER via [facility]. CPR was continuing upon arrival. Patient was taken to trauma room 3. Patients was here at that time, he was shown to a seat by staff while we assisted patient. Patient was moved from ems stretcher to ER stretcher on backboard. Zole pads were switched from [facility] to ER pads. LMA removed per 's orders in attempt to place an ET Tube. 0411: 1mg of epinepherine given. 0412: Blood glucose of 358. 0413: Paused compressions for rhythm check. Asystole on monitor. No pulse. Compressions continued. 0414: 1mg of epinepherine given. 0415: Additional pulse check ordered by md. Pulse was faint with doppler. Patient was in a sinus tachycardia. 0418: 1 amp of bicarb given. 0418: Labs drawn by lab. 0419: 2nd IV placed, 18g left hand. Blood cultures and additional labs drawn. 0420: Patient had a run of vtach. Patient came out of vtach without any medication or being shocked. 0421: MD and respiratory therapy continues to attempt to intubate patient. 0422: patient was intubated by 0422: Patient went into vtach on the monitor. Patient shocked via zole at 200 joules. Patient was pulseless, asystole at that time. CPR continued. 0423: 1mg of epi given. CPR Continues 0425: ET tube was readjusted and removed due to suspicions that the tube was not in the correct place due to hypooxygenation and abdominal distention. 0431: 1 amp of bicarb given 0431: 1mg epi given. 0431: JESSIE Dunn was notified by via kiln head house operator due to inability to intubate. Thurey is en route. 0426: Pulse check. Patient asystole. 1mg of epinepherine given. Intubation attempts continue. CPR continues 0429: Pulse check. Asystole. 1mg of epinepherine given. CPR continues . 0433: ABG drawn via femoral artery by . 0434: due to inability to intubate, lma placed again by . 0438 Anesthesia arrived at bedside. 0439 Patient intubated via Thure[facility]. ET tube 7.5 used, 21 @ lip. Xray ordered to confirm placement. 0442 NG tube placed, [place] sump. NG tube hooked to low intermittent suction. 0443 ET tube and ng tube placed. 0446 Chang catheter placed. 16F. Urine sample sent. 0450 Patient placed on the ventilator by respiratory therapy. 100% o2, tv 400 rate 20. 0451: EKG completed per . ST depression noted on EKG. 0457 notified of patients repeat EKG. Cathlab team notified. 0503 Patients family is at the bedside. Spouse indicated that he thought she wanted to be a DNR but not right now. 0505 called to ask for 8000 Units of heparin to be given. orders completed. 0507 Patient remains intubated. Remains sinus tach with pulse. 0509 Patient lost pulse. Asystole on monitor. CPR continued. 1 amp of epi given 0512 pulse check. Asystole. 1mg of epi given 0513 Cathlab team called ER to discuss patients transfer to [facility]. Patient was deemed too unstable to transfer at this time. 0517 was notified by regarding patient code. recommended 2 amps of bicarb be given. 2amps of bicarb given per MD order. 5mg of epinepherine ordered and given. Repeat EKG ordered by once patient is intubated. Sinus tach noted on monitor. CPR discontinued.
--- NOTE | 2022-04-29 06:34 | [facility].EDCPR ---
Discharge Plan Disposition Patient Disposition: Chief Complaint: Cardiac Arrest/CPR Prescriptions Prescriptions: No Action brimonidine-timolol 0.2-0.5 % drops 1 drp OPHTHALMIC BID 30 Days Qty: 10 pitavastatin calcium 4 mg tablet 4 mg PO DAILY 90 Days Qty: 90 fenofibrate 150 mg capsule 150 mg PO DAILY 90 Days Qty: 90 ramipril 5 mg capsule 5 mg PO BID 90 Days Qty: 180 lansoprazole 30 mg capsule,delayed release(DR/EC) 30 mg PO DAILY 90 Days Qty: 90 levothyroxine 50 mcg tablet 50 mcg PO DAILY 90 Days Qty: 90 metformin 500 mg tablet 500 mg PO DAILY 90 Days Qty: 90 fluoxetine 40 mg capsule 40 mg PO DAILY Qty: 90 1RF Premarin 1.25 mg tablet 1.25 mg PO DAILY Qty: 90 3RF estradiol 2 mg tablet See Rx Instructions .ROUTE .COMPLEX Qty: 90 4RF Dose Instruction: TAKE ONE TABLET BY MOUTH EVERY DAY Rx Instructions: TAKE ONE TABLET BY MOUTH EVERY DAY ciprofloxacin HCl 500 mg tablet 500 mg PO BID Qty: 14 0RF ondansetron 4 MG tablet,disintegrating 4 mg PO Q8HP PRN (Reason: Nausea) Qty: 20 0RF ofloxacin 5 ML bottle 1 drp EYE-RIGHT TID prednisone 20 MG tablet 20 mg PO BID 5 Days Qty: 10 0RF Referrals Follow up/Referrals: Ben Harris MD [Primary Care Provider] - See instructions Clinical Impressions Clinical Impression: Acute myocardial infarction, Cardiac arrest, Acute respiratory failure Discharge ED Provider: Guilherme Bradley CPR HPI General Chief Complaint: Cardiac Arrest/CPR Stated Complaint: code 500 Time Seen by Provider: 04/29/22 05:05 Mode of Arrival: EMS Source of Information: Spouse and EMS Limitations: nonresponsive Description of Symptoms (Recalled from ER Triage Doc. by RN): Per EMS, patient had arrived home after leaving work sick with n/v/d. Per patient was in the restroom vomiting when he heard a thud. When he checked on patient she had collapsed on the bathroom floor. States she was not responsive but breathing. EMS states that upon their arrival patinet was not breathing, responsive and was in asystole. History of Present Illness HPI narrative: diabetic who had vomiting and sudden collapsed and was apnea with asystolic MD complaint: found unresponsive Associated injuries: No Related Data Home Medications Medication Instructions Recorded Confirmed brimonidine 0.2 %-timolol 0.5 % 1 drp ophthalmic (eye) BID glacoma 01/19/18 02/11/22 eye drops 30 days ##10 fenofibrate 150 mg capsule 150 mg PO DAILY Cholesterol 90 01/19/18 02/11/22 days ##90 lansoprazole 30 mg capsule,delayed 30 mg PO DAILY acid reflux 90 days 01/19/18 02/11/22 release ##90 levothyroxine 50 mcg tablet 50 mcg PO DAILY thyroid 90 days 01/19/18 02/11/22 ##90 metformin 500 mg tablet 500 mg PO DAILY Diabetes 90 days 01/19/18 02/11/22 ##90 pitavastatin calcium 4 mg tablet 4 mg PO DAILY Cholesterol 90 days 01/19/18 02/11/22 ##90 ramipril 5 mg capsule 5 mg PO BID bp 90 days ##180 01/19/18 02/11/22 ofloxacin 0.3 % eye drops 1 drp EYE-RIGHT TID EYE INFECTION 09/27/19 02/11/22 Previous Rx's Medication Instructions Recorded ondansetron 4 mg disintegrating 4 mg PO Q8HP PRN Nausea ##20 09/24/19 tablet conjugated estrogens 1.25 mg 1.25 mg PO DAILY #90 tabs 09/06/20 tablet (Premarin) estradiol 2 mg tablet See Rx Instructions .Route 11/06/21 .COMPLEX #90 tabs prednisone 20 mg tablet 20 mg PO BID 5 days #10 tabs 01/03/22 fluoxetine 40 mg capsule 40 mg PO DAILY Depression #90 caps 02/11/22 ciprofloxacin HCl 500 mg tablet 500 mg PO BID #14 tabs 04/03/22 Allergies Allergy/AdvReac Type Severity Reaction Status Date / Time ezetimibe [From Zetia] Allergy Severe Cramping Verified 02/11/22 08:28 of the Muscles bacitracin Allergy Redness of Verified 02/11/22 08:28 [From Neosporin Skin ([id number])] chlorpheniramine Allergy HEART RACES Verified 02/11/22 08:28 [From Coricidin] neomycin
--- NOTE | 2022-04-29 06:42 | PC.NURSE ---
Late Entry: @0534 - No pulse detected and after 4 rounds of defibrillation @ 200j, re-started CPR. Dr. Bradley calling Dr. Rincon. @0535- 2x amp Bicarb and 5mg Epinepherine given per MD @0536- v.fib 200s noted on monitor, no pulse detected via doppler restarted CPR. @0537- Shock delivered @ 200j. No pulses detected via doppler. Dr. Bradley s/w Dr. Rincon then s/w family. @0539- Pulse and rhythm check- no pulses detected. no shockable rhythm noted. Per family they would like to terminate efforts. Vent turned off, no spontaneous respirations noted. @0543- Asystole noted on laboratory monitor. Still no HR. called [facility].
[2022-04-29 06:58] LABS: ABG HCO3 21.1 mmhg (22.0-26.0); ABG PCO2 160.7 mmhg (35.0-45.0); ABG PH 6.74 mmol/L (7.35-7.45); ABG PO2 48.5 mmhg (80-100)
[2022-04-29 06:59] LABS: ABG Base Excess -16.5 mmol/L (-2.4-2.3); ABG Oxygen Saturation 46 % (90-100); ABG TCO2 26.1 mmhg (23-27)
[2022-04-29 07:00] LABS: ABG HCO3 12.1 mmhg (22.0-26.0); ABG PCO2 33.2 mmhg (35.0-45.0); ABG PH 7.18 mmol/L (7.35-7.45); ABG PO2 332.3 mmhg (80-100); ABG TCO2 13.1 mmhg (23-27)
[2022-04-29 07:01] LABS: ABG Base Excess -15.1 mmol/L (-2.4-2.3); ABG Oxygen Saturation 100 % (90-100); Oxygen 100 %
--- NOTE | 2022-04-29 08:28 | PC.NURSE ---
0730- at Shift change report received that we are waiting to hear back from [facility] after they have spoke with pts family.
--- NOTE | 2022-04-29 08:35 | PC.NURSE ---
spoke with [facility] workforce services representative at this time states they are waiting to hear back from family and will call us when they have.
--- NOTE | 2022-04-29 09:37 | PC.NURSE ---
[facility] client service representative called at this time, states pt okay to be released to home, family declined donation.
--- NOTE | 2022-04-29 09:39 | PC.NURSE ---
contacted home ([facility]) to notify them pt is released per [facility].
--- NOTE | 2022-04-29 09:42 | PC.NURSE ---
spoke with shaping machine operator Mariana, states he does not need anything else prior to pt being released to home, states he has all information he needs.
--- NOTE | 2022-04-29 10:22 | PC.NURSE ---
home at at this time for pt transport
== END 2022-04-29 10:30 | disposition expired ==
PROVIDERS: Emergency Provider Emergency Medicine; PCP Internal Medicine Adolescent Medicine
DX: I21.3 ST elevation (STEMI) myocardial infarction of unspecified site (principal); J96.00 Acute respiratory failure, unspecified whether with hypoxia or hypercapnia
CPT/HCPCS: 71045; 80053; 82150; 82803; 83690; 84145; 85007; 85025; 85610; 85651; 86140; 87040; 87070; 87186; 87205; 92950; 93005; 99291